=== PATIENT | female | born 1995 | race Caucasian/White ===

== ENCOUNTER 2018-04-02 17:40 | Emergency (ER) | payer OTHER ==
[2018-04-02 17:51] VITALS: TEMP 36.7
--- NOTE | 2018-04-02 18:26 | EMERGENCY ROOM VISIT NOTE ---
History First contact with patient: 18:06 Chief Complaint: MENTAL HEALTH EVALUATION Stated Complaint: FEELING LOW History of Present Illness The patient is a 20 year old female who presents to the Emergency Room with complaints of feeling suicidal. The patient has a history of bipolar disorder. 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 She states that she was being treated by a psychiatrist prior to arrival in the . She arrived at the [facility] on March 23. She states that she had some stress 3 days ago with 1 of her friends. After that she was feeling down. She had thoughts of drowning herself. Earlier this summer, in February she was feeling suicidal and was cutting herself. She denies any recent cutting. The patient denies any significant medication problems although she states she did miss a dose of her medications on Monday, 2 days ago. She was already feeling down for missing his medications. She denies any drug or alcohol use. She denies any recent medical illnesses. She has no sick contacts. Pt denies LOC, headache, fevers, chills, diaphoresis, visual changes, neck pain, chest pain, breathing difficulties, nausea, vomiting, abdominal pain, back pain, melena, hematochezia , urinary symptoms, numbness, weakness, lymphadenopathy, rash, or other complaints. Review of Systems See HPI for pertinent positives and negatives. A total of ten systems were reviewed and were otherwise negative. Past Medical/Surgical History Medical Problems: (1) Bipolar disorder (2) Suicidal ideation Social History Smoking Status: Never Smoker Current/Historical Medications Scheduled Clobazam (Onfi), 15 MG PO HS Clonazepam (Klonopin), 0.25 MG PO HS Escitalopram (Lexapro), 15 MG PO HS Lamotrigine (Lamictal), 25 MG PO HS Lurasidone HCl (Latuda), 20 MG PO HS Physical Exam Vital Signs Date Time Temp Pulse Resp B/P (MAP) Pulse Ox O2 Delivery O2 Flow Rate FiO2 04/02/18 22:13 70 16 107/76 99 04/02/18 20:20 75 18 116/72 99 Room Air 04/02/18 17:51 36.7 68 18 118/84 100 Room Air Physical Exam GENERAL: Awake, alert, well appearing, no distress HENT: Normocephalic, atraumatic. TM's normal. Oropharynx unremarkable. EYES: PERRL. EOMI. Normal conjunctiva. Sclera non-icteric. NECK: Supple. No nuchal rigidity. FROM. No JVD or bruit. RESPIRATORY: Clear. Breath sounds equal. No wheezes. No rhonchi. Normal respiratory effort. CARDIAC: Normal rate. Regular rhythm. No murmurs. No rubs. No JVD. ABDOMEN: Soft, non distended. No tenderness to palpation. No rebound or guarding. No masses. MUSCULOSKELETAL: Unremarkable. No edema. No discoloration. Gross motor strength symmetric. NEURO: Cranial nerves 2-12 grossly intact. Normal sensorium. No sensory or motor deficits noted. Speech normal. No pronator drift. SKIN: No rash or jaundice noted. LYMPH: No adenopathy. PSYCH: Depressed mood. Flat affect. Vague suicidal ideation. No homicidal ideation. Medical Decision & Procedures Laboratory Results 04/02/18 19:54 Red Blood Count 3.78, Mean Corpuscular Volume 92.9, Mean Corpuscular Hemoglobin 32.3, Mean Corpuscular Hemoglobin Concent 34.8, Mean Platelet Volume 9.4, Neutrophils (%) (Auto) 49.9, Lymphocytes (%) (Auto) 44.8, Monocytes (%) (Auto) 4.3, Eosinophils (%) (Auto) 0.8, Basophils (%) (Auto) 0.2, Neutrophils # (Auto) 2.98, Lymphocytes # (Auto) 2.68, Monocytes # (Auto) 0.26, Eosinophils # (Auto) 0.05, Basophils # (Auto) 0.01 04/02/18 19:54 Test 04/02/18 18:00 04/02/18 19:54 Urine Color YELLOW Urine Appearance CLEAR (CLEAR) Urine pH 6.0 (4.5-7.5) Urine Specific [place] 1.017 (1.000-1.030) Urine Protein NEG (NEG) Urine Glucose (UA) NEG (NEG) Urine Ketones NEG (NEG) Urine Occult Blood NEG (NEG) Urine Nitrite NEG (NEG) Urine Bilirubin NEG (NEG) Urine Urobilinogen NEG (NEG) Urine Leukocyte Esterase NEG (NEG) Urine Test NEG (NEG) Urine Opiates Screen NEG (NEG) Urine Methadone, Qualitative NEG (NEG) Urine Barbiturates NEG (NEG) Urine Phencyclidine (PCP) Level NEG (NEG) Ur Amphetamine/Methamphetamine NEG (NEG) MDMA (Ecstasy) Screen NEG (NEG) Urine Benzodiazepines Screen POS (NEG) Urine Cocaine Metabolite NEG (NEG) Urine Marijuana (THC) NEG (NEG) White Blood Count 5.98 K/uL (4.8-10.8) Red Blood Count 3.78 M/uL (4.2-5.4) Hemoglobin 12.2 g/dL (12.0-16.0) Hematocrit 35.1 % (37-47) Mean Corpuscular Volume 92.9 fL (80-100) Mean Corpuscular Hemoglobin 32.3 pg (25-34) Mean Corpuscular Hemoglobin Concent 34.8 g/dl (32-36) Platelet Count 262 K/uL (130-400) Mean Platelet Volume 9.4 fL (7.4-10.4) Neutrophils (%) (Auto) 49.9 % Lymphocytes (%) (Auto) 44.8 % Monocytes (%) (Auto) 4.3 % Eosinophils (%) (Auto) 0.8 % Basophils (%) (Auto) 0.2 % Neutrophils # (Auto) 2.98 K/uL (1.4-6.5) Lymphocytes # (Auto) 2.68 K/uL (1.2-3.4) Monocytes # (Auto) 0.26 K/uL (0.11-0.59) Eosinophils # (Auto) 0.05 K/uL (0-0.5) Basophils # (Auto) 0.01 K/uL (0-0.2) RDW Standard Deviation 42.8 fL (36.4-46.3) RDW Coefficient of Variation 12.6 % (11.5-14.5) Immature Granulocyte % (Auto) 0.0 % Immature Granulocyte # (Auto) 0.00 K/uL (0.00-0.02) Anion Gap 8.0 mmol/L (3-11) Estimated GFR () 146.5 Estimated GFR (Non- 126.4 BUN/Creatinine Ratio 15.3 (10-20) Calcium Level 8.8 mg/dl (8.5-10.1) Total Bilirubin 0.6 mg/dl (0.2-1) Direct Bilirubin 0.2 mg/dl (0-0.2) Aspartate Amino Transf (AST/SGOT) 14 U/L (15-37) Alanine Aminotransferase (ALT/SGPT) 16 U/L (12-78) Alkaline Phosphatase 40 U/L (45-117) Total Protein 7.5 gm/dl (6.4-8.2) Albumin 4.0 gm/dl (3.4-5.0) Globulin 3.5 gm/dl (2.5-4.0) Albumin/Globulin Ratio 1.2 (0.9-2) Thyroid Stimulating Hormone (TSH) 0.617 uIu/ml (0.300-4.500) Ethyl Alcohol mg/dL < 3.0 mg/dl (0-3) Medical Decision Prior records reviewed from her counseling encounter at [facility] which resulted in the ER referral. Triage Nursing notes reviewed and agree them. The patient's history was concerning for possible psychiatric disturbance. Differential diagnosis: Etiologies such as mood disorder, infection, hypoglycemia, electrolyte abnormalities, cardiac sources, intracerebral event, toxicologic, neurologic, as well as others were entertained. Physical examination: The physical examination was performed as above and was completely benign. No emergent medical pathologies were noted. ER treatment provided: No medication given On reassessment the patient felt better. Diagnostic interpretation by me: The labs revealed unremarkable blood work and urinalysis. The patient was evaluated by the psychiatric residential case manager in the emergency department. After completing her medical evaluation and going through her time with the residential case manager the patient felt better. She was no longer feeling any thoughts of self-harm. [facility]. If she feels worse she will come back to the emergency department. She contracted for safety. She has her medications as prescribed by her family psychiatrist. I gave my usual and customary discussion regarding this issue. By the evaluation outlined above other emergent etiologies such as those listed in the differential, as well as others, were deemed relatively unlikely. The patient was educated about the findings as listed above. All questions were answered and the patient was pleased with the treatment. Return instructions were outlined and the patient was discharged in stable condition. The patient was referred to [facility] counseling services for follow-up for a recheck of the current condition. Impression Primary Impression: Suicidal ideation Additional Impression: Mood disorder Departure Information Dispostion Home / Self-Care Condition GOOD Patient Instructions My [facility] Additional Instructions PSYCHIATRIC INSTRUCTIONS: Rest. Drink plenty of fluids. Continue your current medications. Return to the ER for severe anxiety or depression, thoughts of hurting yourself or others, inability to function, hallucinations, worsening of your condition, or as needed. Follow up with outpatient services as discussed by the psychiatric case specialist in the ER. Call them tomorrow. Problem Qualifiers
[2018-04-02] MEDS ORDERED: CLOB1SUS PO (18:57)
[2018-04-02] MEDS ORDERED: LAMO25TA PO (18:58)
[2018-04-02] MEDS ORDERED: KLN/5 PO (19:00)
[2018-04-02] MEDS ORDERED: ESCI10TA17 PO (19:01)
[2018-04-02] MEDS ORDERED: LTD/40 PO (19:02)
[2018-04-02 20:41] LABS: BASO % 0.2 %; BASO ABS # 0.01 K/uL (0-0.2); EOS % 0.8 %; EOS ABS # 0.05 K/uL (0-0.5); HEMATOCRIT 35.1 % (37-47); HEMOGLOBIN 12.2 g/dL (12.0-16.0); LYMPH % 44.8 %; LYMPH ABS # 2.68 K/uL (1.2-3.4); MEAN CELL VOLUME 92.9 fL (80-100); MEAN CORPUSCULAR HEMOGLOBIN 32.3 pg (25-34); MEAN CORPUSCULAR HGB CONC 34.8 g/dl (32-36); MEAN PLATELET VOLUME 9.4 fL (7.4-10.4); MONO % 4.3 %; MONO ABS # 0.26 K/uL (0.11-0.59); NEUT % 49.9 %; NEUT ABS # 2.98 K/uL (1.4-6.5); PLATELET COUNT 262 K/uL (130-400); RED CELL DISTRIBUTION WIDTH CV 12.6 % (11.5-14.5); RED CELL DISTRIBUTION WIDTH SD 42.8 fL (36.4-46.3); WHITE BLOOD COUNT 5.98 K/uL (4.8-10.8)
[2018-04-02 21:14] LABS: ALKALINE PHOSPHATASE 40 U/L (45-117); ALT/SGPT 16 U/L (12-78); AST/SGOT 14 U/L (15-37); BLOOD UREA NITROGEN 10 mg/dl (7-18); CALCIUM 8.8 mg/dl (8.5-10.1); CARBON DIOXIDE 26 mmol/L (21-32); CREATININE 0.63 mg/dl (0.60-1.20); GLUCOSE 72 mg/dl (70-99); POTASSIUM 3.6 mmol/L (3.5-5.1); SODIUM 138 mmol/L (136-145); TOTAL PROTEIN 7.5 gm/dl (6.4-8.2)
[2018-04-02 22:13] VITALS: BP 107/76; PULSE 70; O2SAT 99
== END 2018-04-02 22:16 | disposition home or self-care (01) ==
LOC: C.EDB 17:42 → EDBD 17:42 → C.EDA 22:16
DX: R45.851 Suicidal ideations (principal); F31.9 Bipolar disorder, unspecified; Z79.899 Other long term (current) drug therapy

== ENCOUNTER 2018-04-06 21:29 | Emergency (ER) | payer OTHER ==
[~2018-04-06 21:29] MED LIST: CLOB1SUS PO; ESCI10TA17 PO; KLN/5 PO; LAMO25TA PO; LTD/40 PO
[2018-04-06 21:43] VITALS: TEMP 36.7
[2018-04-06 22:20] LABS: BASO % 0.3 %; BASO ABS # 0.02 K/uL (0-0.2); EOS % 0.3 %; EOS ABS # 0.02 K/uL (0-0.5); HEMATOCRIT 35.6 % (37-47); HEMOGLOBIN 12.2 g/dL (12.0-16.0); IG# 0.01 K/uL (0.00-0.02); LYMPH % 42.8 %; LYMPH ABS # 2.76 K/uL (1.2-3.4); MEAN CELL VOLUME 92.5 fL (80-100); MEAN CORPUSCULAR HEMOGLOBIN 31.7 pg (25-34); MEAN CORPUSCULAR HGB CONC 34.3 g/dl (32-36); MEAN PLATELET VOLUME 9.1 fL (7.4-10.4); MONO % 6.4 %; MONO ABS # 0.41 K/uL (0.11-0.59); NEUT ABS # 3.23 K/uL (1.4-6.5); PLATELET COUNT 273 K/uL (130-400); RED CELL DISTRIBUTION WIDTH CV 12.6 % (11.5-14.5); WHITE BLOOD COUNT 6.45 K/uL (4.8-10.8)
[2018-04-06 22:47] LABS: ALKALINE PHOSPHATASE 42 U/L (45-117); ALT/SGPT 15 U/L (12-78); AST/SGOT 13 U/L (15-37); BLOOD UREA NITROGEN 12 mg/dl (7-18); CALCIUM 8.6 mg/dl (8.5-10.1); CARBON DIOXIDE 25 mmol/L (21-32); CREATININE 0.68 mg/dl (0.60-1.20); GLUCOSE 91 mg/dl (70-99); POTASSIUM 3.5 mmol/L (3.5-5.1); SODIUM 138 mmol/L (136-145); TOTAL PROTEIN 7.6 gm/dl (6.4-8.2)
--- NOTE | 2018-04-06 23:04 | EMERGENCY ROOM VISIT NOTE ---
History First contact with patient: 21:48 Chief Complaint: OVERDOSE (ACCIDENTAL) Stated Complaint: TOO MUCH ACETAMINOPHEN Nursing Triage Summary: Patient stated she was expecting period cramps and began to take Tylenol before they began and did not know how much was too much. History of Present Illness The patient is a 22 year old female who presents to the Emergency Room with complaints of taking too much Tylenol. The patient states that she took 4500 mg of Tylenol between 3 PM and 5 PM this evening. She states that she is not sure why she took so much Tylenol. She reports that she was expecting menstrual cramps, but was not having any pain when she took them. She states that she took the first one, and then "just kept popping them" after that. She feels that she was a little absent-minded and was just taking them because the bottle was in her hand. She states this was not an attempt to hurt herself. She has not taken any other medications. She denies drug or alcohol use. She reports a mild sore throat at this time. She denies abdominal pain, nausea/ vomiting, chest pain or shortness of breath. She was recently seen here for suicidal ideations and denies any thoughts of suicide since then. Review of Systems A complete 10 point review of systems was reviewed with the patient with pertinent positives and negatives as per history of present illness. All else were negative. Past Medical/Surgical History Medical Problems: (1) Bipolar disorder (2) Suicidal ideation Social History Smoking Status: Never Smoker Occupation Status: [employer] student Current/Historical Medications Scheduled Cholecalciferol (Vitamin D3), 3 TAB PO DAILY Clobazam (Onfi), 5 MG PO AMHS Clonazepam (Clonazepam Odt), 0.25 MG PO AMHS Escitalopram (Lexapro), 15 MG PO HS Isotretinoin (Isotretinoin), 10 MG PO DAILY Lamotrigine (Lamictal), 25 MG PO HS Lurasidone HCl (Latuda), 40 MG PO HS Pantoprazole (Protonix), 40 MG PO QAM Physical Exam Vital Signs Date Time Temp Pulse Resp B/P (MAP) Pulse Ox O2 Delivery O2 Flow Rate FiO2 04/07/18 05:35 64 12 95/63 98 04/07/18 05:00 64 13 92/68 98 04/07/18 04:59 63 04/07/18 04:35 66 18 99 04/07/18 04:05 61 14 92/67 97 04/07/18 04:00 61 14 93/66 98 04/07/18 03:40 63 14 98/66 98 04/07/18 03:05 61 15 97 04/07/18 03:00 92/60 04/07/18 02:35 64 14 98 04/07/18 02:30 101/66 04/07/18 02:05 79 17 04/07/18 02:00 61 15 90/68 99 Room Air 04/07/18 01:34 59 12 99 04/07/18 01:04 56 16 94/66 99 Room Air 04/07/18 00:59 56 18 91/71 99 Room Air 04/07/18 00:30 55 19 98/69 99 Room Air 04/07/18 00:00 62 15 93/67 99 Room Air 04/06/18 23:59 59 12 102/79 98 Room Air 04/06/18 23:20 62 14 104/70 04/06/18 23:19 58 17 104/70 100 Room Air 04/06/18 22:01 75 04/06/18 21:43 36.7 82 18 109/75 98 Room Air Physical Exam VITALS: Vitals are noted on the nurse's note and reviewed by myself. Vital signs stable. GENERAL: This is a 22-year-old female, in no acute distress, nondiaphoretic, well-developed well-nourished. SKIN: The skin was without rashes. HEAD: Normocephalic atraumatic. EARS: External auditory canals clear, tympanic membranes pearly chris without erythema or effusion bilaterally. EYES: Pupils equal round and reactive to light and accommodation. Conjunctivae without injection, sclerae without icterus. MOUTH: Mucous membranes moist. Tonsils are not enlarged. Pharynx without erythema or exudate. NECK: Supple without nuchal rigidity. No lymphadenopathy. HEART: Regular rate and rhythm without murmurs gallops or rubs. LUNGS: Clear to auscultation bilaterally without wheezes, rales or rhonchi. ABDOMEN: Positive bowel sounds x 4. Soft, nontender to palpation. NEURO: Patient was alert and oriented to person place and time. Medical Decision & Procedures Laboratory Results 04/06/18 22:05 Red Blood Count 3.85, Mean Corpuscular Volume 92.5, Mean Corpuscular Hemoglobin 31.7, Mean Corpuscular Hemoglobin Concent 34.3, Mean Platelet Volume 9.1, Neutrophils (%) (Auto) 50.0, Lymphocytes (%) (Auto) 42.8, Monocytes (%) (Auto) 6.4, Eosinophils (%) (Auto) 0.3, Basophils (%) (Auto) 0.3, Neutrophils # (Auto) 3.23, Lymphocytes # (Auto) 2.76, Monocytes # (Auto) 0.41, Eosinophils # (Auto) 0.02, Basophils # (Auto) 0.02 04/06/18 22:05 Test 04/06/18 22:05 04/07/18 00:33 White Blood Count 6.45 K/uL (4.8-10.8) Red Blood Count 3.85 M/uL (4.2-5.4) Hemoglobin 12.2 g/dL (12.0-16.0) Hematocrit 35.6 % (37-47) Mean Corpuscular Volume 92.5 fL (80-100) Mean Corpuscular Hemoglobin 31.7 pg (25-34) Mean Corpuscular Hemoglobin Concent 34.3 g/dl (32-36) Platelet Count 273 K/uL (130-400) Mean Platelet Volume 9.1 fL (7.4-10.4) Neutrophils (%) (Auto) 50.0 % Lymphocytes (%) (Auto) 42.8 % Monocytes (%) (Auto) 6.4 % Eosinophils (%) (Auto) 0.3 % Basophils (%) (Auto) 0.3 % Neutrophils # (Auto) 3.23 K/uL (1.4-6.5) Lymphocytes # (Auto) 2.76 K/uL (1.2-3.4) Monocytes # (Auto) 0.41 K/uL (0.11-0.59) Eosinophils # (Auto) 0.02 K/uL (0-0.5) Basophils # (Auto) 0.02 K/uL (0-0.2) RDW Standard Deviation 43.0 fL (36.4-46.3) RDW Coefficient of Variation 12.6 % (11.5-14.5) Immature Granulocyte % (Auto) 0.2 % Immature Granulocyte # (Auto) 0.01 K/uL (0.00-0.02) Prothrombin Time 12.8 SECONDS (9.0-12.0) Prothromb Time International Ratio 1.2 (0.9-1.1) Activated Partial Thromboplast Time 27.5 SECONDS (21.0-31.0) Partial Thromboplastin Ratio 1.1 Anion Gap 8.0 mmol/L (3-11) Estimated GFR () 142.9 Estimated GFR (Non- 123.3 BUN/Creatinine Ratio 17.8 (10-20) Calcium Level 8.6 mg/dl (8.5-10.1) Total Bilirubin 0.6 mg/dl (0.2-1) Direct Bilirubin 0.2 mg/dl (0-0.2) Aspartate Amino Transf (AST/SGOT) 13 U/L (15-37) Alanine Aminotransferase (ALT/SGPT) 15 U/L (12-78) Alkaline Phosphatase 42 U/L (45-117) Total Protein 7.6 gm/dl (6.4-8.2) Albumin 4.0 gm/dl (3.4-5.0) Thyroid Stimulating Hormone (TSH) 1.470 uIu/ml (0.300-4.500) Salicylates Level < 1.7 mg/dl (2.8-20) Acetaminophen Level 34 ug/ml (10-30) Ethyl Alcohol mg/dL < 3.0 mg/dl (0-3) Urine Color YELLOW Urine Appearance CLEAR (CLEAR) Urine pH 7.0 (4.5-7.5) Urine Specific [place] 1.023 (1.000-1.030) Urine Protein NEG (NEG) Urine Glucose (UA) NEG (NEG) Urine Ketones TRACE (NEG) Urine Occult Blood 2+ (NEG) Urine Nitrite NEG (NEG) Urine Bilirubin NEG (NEG) Urine Urobilinogen NEG (NEG) Urine Leukocyte Esterase NEG (NEG) Urine WBC (Auto) 1-5 /hpf (0-5) Urine RBC (Auto) >30 /hpf (0-4) Urine Hyaline Casts (Auto) 1-5 /lpf (0-5) Urine Epithelial Cells (Auto) 10-20 /lpf (0-5) Urine Bacteria (Auto) NEG (NEG) Urine Test NEG (NEG) Urine Opiates Screen NEG (NEG) Urine Methadone, Qualitative NEG (NEG) Urine Barbiturates NEG (NEG) Urine Phencyclidine (PCP) Level NEG (NEG) Ur Amphetamine/Methamphetamine NEG (NEG) MDMA (Ecstasy) Screen NEG (NEG) Urine Benzodiazepines Screen POS (NEG) Urine Cocaine Metabolite NEG (NEG) Urine Marijuana (THC) NEG (NEG) ED Course The patient was evaluated as above. Labs were drawn and IV access was obtained. I spoke with the Poison Control Center. They report that the patient's current acetaminophen level is nontoxic and she will not need any further testing. Patient was reevaluated and treatment plan discussed. Patient was evaluated by the psych liason. Discharge instructions were reviewed with the patient. The patient verbalized understanding of my assessment and treatment plan and was discharged home in good condition. Medical Decision Differential diagnosis includes Tylenol overdose, salicylate overdose, drug use , suicidal ideations, depression, among others. The patient is a 22-year-old female who presents today complaining of taking too much Tylenol today. Patient's Tylenol level was 34 when she was evaluated. LFTs within normal limits. I spoke with the Poison Control Center who states this is a nontoxic level given the patient's time of ingestion and did not recommend rechecking acetaminophen level. Labs otherwise unremarkable. I had a lengthy discussion with the patient. She adamantly denies that this was an attempt to hurt herself in any way. The patient was recently seen here for suicidal ideations but states she has been doing very well since then and again denies any current suicidal ideations. The patient met with the psychiatric liaison who does feel that the patient is being truthful in this. They will contact [facility] to ensure that the patient makes an appointment for follow-up. The patient was agreeable to this. She was advised to return immediately if she has any worsening symptoms or any concerns about her mental health. She will follow up with [facility]. She was discharged home in good condition. Medication Reconcilliation Current Medication List: was personally reviewed by me Blood Pressure Screening Patient's blood pressure: Low blood pressure (Based on previous visits, this appears to be patient's baseline.) Impression Primary Impression: Accidental acetaminophen overdose Departure Information Dispostion Home / Self-Care Condition FAIR Referrals [facility] (PCP) Patient Instructions My [facility] Additional Instructions As discussed, you need to contact [facility] to schedule an appointment for follow up. We will be contacting you to ensure you make this appointment. Do not exceed 4000 mg of Tylenol per day. An appropriate dose is 500-1000 mg every 6 hours. Return to the emergency department immediately if you have any worsening depression, thoughts of hurting herself, or any other new/concerning symptoms. Problem Qualifiers Primary Impression: Accidental acetaminophen overdose Encounter type: initial encounter Qualified Codes: T39.1X1A - Poisoning by 4 -aminophenol derivatives, accidental (unintentional), initial encounter
[2018-04-06] MEDS ORDERED: CLON0.252 PO (23:23)
[2018-04-06] MEDS ORDERED: PANT40TA PO (23:24)
[2018-04-06] MEDS ORDERED: ISOT10CA13 PO (23:25)
[2018-04-06] MEDS ORDERED: CHOL1000 PO (23:26)
[2018-04-07 00:18] LABS: INR 1.2 (0.9-1.1); PTT PATIENT 27.5 SECONDS (21.0-31.0)
[2018-04-07 05:35] VITALS: BP 95/63; PULSE 64; O2SAT 98
== END 2018-04-07 05:39 | disposition home or self-care (01) ==
LOC: C.EDB 21:30 → C.EDA 04-07 05:39
DX: T39.1X1A Poisoning by 4-Aminophenol derivatives, accidental (unintentional), initial encounter (principal); F31.9 Bipolar disorder, unspecified; Z79.899 Other long term (current) drug therapy